=== PATIENT | male | born 1970 | race Caucasian/White ===

== ENCOUNTER 2022-06-04 05:53 | Emergency (ER) | payer MEDICAID, SELFPAY ==
[2022-06-04] MEDS ORDERED: hydrALAZINE 20MG/ML 1ML VIAL (J0360 PER 20MG) IV STA (06:22)
[2022-06-04] MEDS ORDERED: hydrALAZINE 20MG/ML 1ML VIAL (J0360 PER 20MG) As Ordered ONE (06:22)
[2022-06-04 06:25] VITALS: BP 191/126
[2022-06-04] MEDS ORDERED: niCARdipine IV 40 MG in IV 1 EA IV SCH (06:25)
[2022-06-04 06:30] VITALS: BP 184/109
[2022-06-04 06:32] LABS: BASO % 0.4 % (0.0-1.0); EOS # 0.1 10^3/uL (0.0-0.5); EOS % 0.9 % (0.0-3.0); HEMATOCRIT 42.6 % (42.0-52.0); HEMOGLOBIN 15.8 g/dl (13.5-17.5); LYMPH # 1.1 10^3/uL (1.5-5.0); LYMPH % 11.5 % (24.0-44.0); MEAN CORPUSCULAR HEMOGLOBIN 32.5 pg (27.0-33.0); MEAN CORPUSCULAR VOLUME 87.7 fl (80.0-96.0); MONO # 0.7 10^3/uL (0.0-0.8); MONO % 7.9 % (2.0-8.0); NEUTROPHILS # 7.3 10^3/uL (1.5-8.5); NEUTROPHILS % 78.8 % (36.0-66.0); PLATELET COUNT, AUTOMATED 240 10^3/uL (150-450); RED BLOOD COUNT 4.86 10^6/uL (4.30-6.10); WHITE BLOOD COUNT 9.2 10^3/uL (4.0-10.0)
[2022-06-04 06:39] LABS: MEAN CORPUSCULAR HGB CONC 37.1 g/dl (32.0-36.5)
[2022-06-04 07:01] VITALS: BP 147/73
[2022-06-04 07:07] LABS: CALCIUM LEVEL 9.8 MG/DL (8.5-10.1); CREATININE FOR GFR 1.36 MG/DL (0.70-1.30); GLOMERULAR FILTRATION RATE 59.3 (>60); MB/CK RELATIVE INDEX 1.99 (< OR =4); POTASSIUM SERUM 2.6 MEQ/L (3.5-5.1)
== END 2022-06-04 07:09 | disposition short-term general hospital (02) ==
LOC: M ED 05:53 → EDBD 05:53 → M ED 07:09
DX: I61.8 Other nontraumatic intracerebral hemorrhage (principal); R91.8 Other nonspecific abnormal finding of lung field; J34.1 Cyst and mucocele of nose and nasal sinus
CPT/HCPCS: 70450; 71045; 80048; 82550; 82553; 85025; 85730; 86850; 93005; 93041; 94760; 96374; 99291; 99292; J0360

== ENCOUNTER 2022-06-27 10:57 | Inpatient (IN) | payer MEDICAID ==
[~2022-06-27] VITALS: Ht 185.4 cm; Wt 106.9 kg
[2022-06-27 15:35] VITALS: BP 149/88
[2022-06-27] MEDS ORDERED: MAGIC MOUTHWASH SUSPENSION BTL SS PRN (15:35)
[2022-06-27] MEDS ORDERED: VITAMIN A & D OINTMENT 42.5GM TOP PRN (16:30)
[2022-06-27] MEDS ORDERED: SENN-80 PO (16:39)
[2022-06-27] MEDS ORDERED: HYDR-3910 PO (16:39)
[2022-06-27] MEDS ORDERED: PERI12LIQ SSP (16:39)
[2022-06-27] MEDS ORDERED: FAMO20TA PO (16:39)
[2022-06-27] MEDS ORDERED: THIA100T7 PO (16:39)
[2022-06-27] MEDS ORDERED: LISI10TA22 PO (16:39)
[2022-06-27] MEDS ORDERED: VITA100093 PO (16:39)
[2022-06-27] MEDS ORDERED: HEPA500057 SC (16:39)
[2022-06-27] MEDS ORDERED: DOCU100C16 PO (16:39)
[2022-06-27] MEDS ORDERED: AMLO1TAB25 PO (16:39)
[2022-06-27] MEDS ORDERED: ACET1TAB55 PO (16:39)
[2022-06-27] MEDS ORDERED: MICO2CRE42 TOP (16:39)
[2022-06-27] MEDS ORDERED: HOME MED LIST COMPLETE! XX SCH (16:40)
[2022-06-27 20:00] VITALS: BP 135/78
[2022-06-27] MEDS: **hydrALAZINE HCL** 25 MG TAB PO SCH (20:15)
[2022-06-27] MEDS: SENNA 8.6 MG TAB (SENOKOT) PO SCH (20:15)
[2022-06-27] MEDS: FAMOTIDINE 20 MG TAB PO SCH (20:15)
[2022-06-27] MEDS: NYSTATIN 100,000 UNITS/GM TOPICAL PWD 15 GM TOP SCH (20:16)
[2022-06-28 06:00] VITALS: BP 142/90
[2022-06-28 07:19] LABS: BASO % 0.6 % (0.0-1.0); EOS # 0.1 10^3/uL (0.0-0.5); EOS % 2.7 % (0.0-3.0); HEMATOCRIT 38.3 % (42.0-52.0); HEMOGLOBIN 13.2 g/dl (13.5-17.5); LYMPH # 1.2 10^3/uL (1.5-5.0); LYMPH % 25.1 % (24.0-44.0); MEAN CORPUSCULAR HGB CONC 34.5 g/dl (32.0-36.5); MONO # 0.4 10^3/uL (0.0-0.8); MONO % 8.4 % (2.0-8.0); NEUTROPHILS % 61.6 % (36.0-66.0); PLATELET COUNT, AUTOMATED 266 10^3/uL (150-450); RED BLOOD COUNT 4.12 10^6/uL (4.30-6.10); WHITE BLOOD COUNT 4.9 10^3/uL (4.0-10.0)
[2022-06-28 07:59] LABS: ALBUMIN 3.4 GM/DL (3.2-5.2); ALT/SGPT 108 U/L (12-78); BILIRUBIN,TOTAL 0.8 MG/DL (0.2-1.0); BLOOD UREA NITROGEN 11 MG/DL (7-18); CALCIUM LEVEL 9.3 MG/DL (8.5-10.1); CARBON DIOXIDE LEVEL 30 MEQ/L (21-32); CHLORIDE LEVEL 102 MEQ/L (98-107); CHOLESTEROL LEVEL 109 MG/DL (<200); CHOLESTEROL RISK RATIO 2.794 (<5); CREATININE FOR GFR 0.71 MG/DL (0.70-1.30); GLOMERULAR FILTRATION RATE > 60.0 (>56); GLUCOSE, FASTING 76 MG/DL (70-100); HDL CHOLESTEROL 39 MG/DL (>40); LDL CHOLESTEROL 41 MG/DL (<100); NON-HDL-C 70 MG/DL; POTASSIUM SERUM 4.3 MEQ/L (3.5-5.1); SODIUM LEVEL 136 MEQ/L (136-145); TOTAL PROTEIN 6.4 GM/DL (6.4-8.2); TRIGLYCERIDES LEVEL 144 MG/DL (<150)
[2022-06-28] MEDS: SENNA 8.6 MG TAB (SENOKOT) PO SCH ×2 (08:17→20:22)
[2022-06-28] MEDS: VITAMIN D 1,000 INTERNATIONAL UNITS TABLET PO SCH (08:17)
[2022-06-28] MEDS: THIAMINE 100 MG TAB PO SCH (08:18)
[2022-06-28] MEDS: **hydrALAZINE HCL** 25 MG TAB PO SCH ×2 (08:18→20:23)
[2022-06-28] MEDS: FAMOTIDINE 20 MG TAB PO SCH ×2 (08:21→20:22)
[2022-06-28] MEDS: NYSTATIN 100,000 UNITS/GM TOPICAL PWD 15 GM TOP SCH ×2 (08:23→20:23)
[2022-06-28 11:17] LABS: FERRITIN 366 NG/ML (26-388); IRON (FE) 231 UG/DL (65-175); PERCENT SATURATION 93.5 % (19.7-50.0); TOTAL IRON BINDING CAPACITY 247 UG/DL (250-450)
[2022-06-28 11:44] LABS: VITAMIN B12 LEVEL 796 PG/ML
[2022-06-28 11:54] LABS: HEPATITIS B SURFACE ANTIGEN NEGATIVE (NEGATIVE)
[2022-06-28 12:22] LABS: HEPATITIS B CORE ANTIBODY IGM NEGATIVE (NEGATIVE); HEPATITIS C VIRUS ABY INDEX 0.1 INDEX (<0.8)
[2022-06-28] MEDS ORDERED: VARIBAR PUDDING 40% w/v 230ML TUBE As Ordered ONE (13:34)
[2022-06-28] MEDS ORDERED: VARIBAR NECTAR 40% w/v 240ML SUSP BTL As Ordered ONE (13:37)
[2022-06-28] MEDS ORDERED: E-Z-PAQUE 96% w/w SUSP 176GM BTL As Ordered ONE (13:39)
[2022-06-28] MEDS ORDERED: BARIUM SULFATE 700 MG TABLET (E-Z-DISK) As Ordered ONE (13:39)
[2022-06-28 14:00] VITALS: BP 140/84
[2022-06-28 20:00] VITALS: BP 125/82
[2022-06-29 06:00] VITALS: BP 148/80
[2022-06-29] MEDS: THIAMINE 100 MG TAB PO SCH (09:43)
[2022-06-29] MEDS: VITAMIN D 1,000 INTERNATIONAL UNITS TABLET PO SCH (09:43)
[2022-06-29] MEDS: SENNA 8.6 MG TAB (SENOKOT) PO SCH ×2 (09:43→20:53)
[2022-06-29] MEDS: FAMOTIDINE 20 MG TAB PO SCH ×2 (09:43→20:54)
[2022-06-29] MEDS: NYSTATIN 100,000 UNITS/GM TOPICAL PWD 15 GM TOP SCH ×2 (09:44→20:54)
[2022-06-29] MEDS: **hydrALAZINE HCL** 25 MG TAB PO SCH ×2 (09:44→20:54)
[2022-06-29 14:00] VITALS: BP 134/85
[2022-06-29 20:00] VITALS: BP 123/79
[2022-06-30 06:00] VITALS: BP 120/81
[2022-06-30 06:31] LABS: APPEARANCE, URINE MANUAL CLEAR (CLEAR); COLOR, URINE MANUAL YELLOW (YELLOW); PH,URINE MAN 7.5 UNITS (5.0 - 7.0)
[2022-06-30 06:33] LABS: BILIRUBIN, URINE MANUAL NEGATIVE (NEGATIVE); BLOOD URINE MANUAL NEGATIVE (NEGATIVE); GLUCOSE, URINE (UA) MANUAL NEGATIVE (NEGATIVE); KETONE, URINE MANUAL NEGATIVE (NEGATIVE); LEUKOCYTE ESTERASE, URINE MAN NEGATIVE (NEGATIVE); NITRITE, URINE MANUAL NEGATIVE (NEGATIVE); PROTEIN, URINE MANUAL NEGATIVE (NEGATIVE); UROBILINOGEN, URINE MANUAL NORMAL (NORMAL)
[2022-06-30] MEDS: SENNA 8.6 MG TAB (SENOKOT) PO SCH ×2 (09:22→20:55)
[2022-06-30] MEDS: **hydrALAZINE HCL** 25 MG TAB PO SCH ×2 (09:22→20:55)
[2022-06-30] MEDS: FAMOTIDINE 20 MG TAB PO SCH ×2 (09:22→20:55)
[2022-06-30] MEDS: NYSTATIN 100,000 UNITS/GM TOPICAL PWD 15 GM TOP SCH ×2 (09:23→20:55)
[2022-06-30] MEDS: THIAMINE 100 MG TAB PO SCH (09:23)
[2022-06-30] MEDS: VITAMIN D 1,000 INTERNATIONAL UNITS TABLET PO SCH (09:23)
[2022-06-30 14:00] VITALS: BP 122/74
[2022-06-30 20:00] VITALS: BP 131/74
[2022-07-01 06:00] VITALS: BP 122/80
[2022-07-01] MEDS: FAMOTIDINE 20 MG TAB PO SCH ×2 (09:58→20:05)
[2022-07-01] MEDS: THIAMINE 100 MG TAB PO SCH (09:58)
[2022-07-01] MEDS: VITAMIN D 1,000 INTERNATIONAL UNITS TABLET PO SCH (09:58)
[2022-07-01] MEDS: SENNA 8.6 MG TAB (SENOKOT) PO SCH ×2 (09:58→20:05)
[2022-07-01] MEDS: NYSTATIN 100,000 UNITS/GM TOPICAL PWD 15 GM TOP SCH ×2 (09:58→20:05)
[2022-07-01] MEDS: **hydrALAZINE HCL** 25 MG TAB PO SCH ×2 (10:01→20:05)
[2022-07-01 14:00] VITALS: BP 133/83
[2022-07-01 19:41] VITALS: BP 134/89
[2022-07-02 05:28] VITALS: BP 136/86
[2022-07-02] MEDS: FAMOTIDINE 20 MG TAB PO SCH ×2 (08:39→20:42)
[2022-07-02] MEDS: SENNA 8.6 MG TAB (SENOKOT) PO SCH ×2 (08:40→20:43)
[2022-07-02] MEDS: THIAMINE 100 MG TAB PO SCH (08:40)
[2022-07-02] MEDS: VITAMIN D 1,000 INTERNATIONAL UNITS TABLET PO SCH (08:40)
[2022-07-02] MEDS: **hydrALAZINE HCL** 25 MG TAB PO SCH ×2 (08:41→20:43)
[2022-07-02] MEDS: NYSTATIN 100,000 UNITS/GM TOPICAL PWD 15 GM TOP SCH ×2 (08:43→20:43)
[2022-07-02 14:00] VITALS: BP 144/90
[2022-07-02 19:36] VITALS: BP_SYST 148; BP_SYST 159; BP_DIAS 84; BP_DIAS 90
[2022-07-03 06:00] VITALS: BP 132/84
[2022-07-03 07:30] LABS: ALBUMIN 3.4 GM/DL (3.2-5.2); ALT/SGPT 72 U/L (12-78); BLOOD UREA NITROGEN 10 MG/DL (7-18); CALCIUM LEVEL 9.2 MG/DL (8.5-10.1); CARBON DIOXIDE LEVEL 32 MEQ/L (21-32); CHLORIDE LEVEL 102 MEQ/L (98-107); CREATININE FOR GFR 0.77 MG/DL (0.70-1.30); GLOMERULAR FILTRATION RATE > 60.0 (>56); GLUCOSE, FASTING 102 MG/DL (70-100); POTASSIUM SERUM 3.9 MEQ/L (3.5-5.1); SODIUM LEVEL 138 MEQ/L (136-145); TOTAL PROTEIN 6.3 GM/DL (6.4-8.2)
[2022-07-03] MEDS: THIAMINE 100 MG TAB PO SCH (09:08)
[2022-07-03] MEDS: SENNA 8.6 MG TAB (SENOKOT) PO SCH ×2 (09:08→19:42)
[2022-07-03] MEDS: FAMOTIDINE 20 MG TAB PO SCH ×2 (09:08→20:34)
[2022-07-03] MEDS: VITAMIN D 1,000 INTERNATIONAL UNITS TABLET PO SCH (09:08)
[2022-07-03] MEDS: **hydrALAZINE HCL** 25 MG TAB PO SCH ×2 (09:09→20:34)
[2022-07-03] MEDS: NYSTATIN 100,000 UNITS/GM TOPICAL PWD 15 GM TOP SCH ×2 (09:12→20:34)
[2022-07-03 14:00] VITALS: BP 140/85
[2022-07-03 20:00] VITALS: BP 154/87
[2022-07-04 06:00] VITALS: BP 142/88
[2022-07-04] MEDS: FAMOTIDINE 20 MG TAB PO SCH ×2 (08:33→20:53)
[2022-07-04] MEDS: VITAMIN D 1,000 INTERNATIONAL UNITS TABLET PO SCH (08:33)
[2022-07-04] MEDS: ACETAMINOPHEN TAB 650MG DOSE (2X325MG) PO PRN (08:33)
[2022-07-04] MEDS: THIAMINE 100 MG TAB PO SCH (08:34)
[2022-07-04] MEDS: **hydrALAZINE HCL** 25 MG TAB PO SCH ×2 (08:34→20:54)
[2022-07-04] MEDS: NYSTATIN 100,000 UNITS/GM TOPICAL PWD 15 GM TOP SCH ×2 (08:34→20:54)
[2022-07-04] MEDS: SENNA 8.6 MG TAB (SENOKOT) PO SCH (08:35)
[2022-07-04 14:00] VITALS: BP 132/78
[2022-07-04 19:41] VITALS: BP 137/77
[2022-07-04] MEDS: BACLOFEN 5MG PER 1/2 TABLET PO SCH (20:53)
[2022-07-05 05:39] VITALS: BP 144/83
[2022-07-05] MEDS ORDERED: SENNA 8.6 MG TAB (SENOKOT) PO PRN (06:00)
[2022-07-05] MEDS: THIAMINE 100 MG TAB PO SCH (08:16)
[2022-07-05] MEDS: VITAMIN D 1,000 INTERNATIONAL UNITS TABLET PO SCH (08:16)
[2022-07-05] MEDS: **hydrALAZINE HCL** 25 MG TAB PO SCH ×2 (08:16→20:56)
[2022-07-05] MEDS: FAMOTIDINE 20 MG TAB PO SCH ×2 (08:16→20:56)
[2022-07-05] MEDS: NYSTATIN 100,000 UNITS/GM TOPICAL PWD 15 GM TOP SCH ×2 (08:17→20:57)
[2022-07-05 14:00] VITALS: BP 128/86
[2022-07-05] MEDS: BACLOFEN 5MG PER 1/2 TABLET PO SCH (20:56)
[2022-07-05 23:23] VITALS: BP 130/84
[2022-07-06 05:25] VITALS: BP 148/88
[2022-07-06] MEDS: **hydrALAZINE HCL** 25 MG TAB PO SCH ×2 (09:30→20:26)
[2022-07-06] MEDS: NYSTATIN 100,000 UNITS/GM TOPICAL PWD 15 GM TOP SCH ×2 (09:31→20:26)
[2022-07-06] MEDS: FAMOTIDINE 20 MG TAB PO SCH ×2 (09:31→20:26)
[2022-07-06] MEDS: THIAMINE 100 MG TAB PO SCH (09:31)
[2022-07-06] MEDS: VITAMIN D 1,000 INTERNATIONAL UNITS TABLET PO SCH (09:31)
[2022-07-06 10:37] LABS: ALBUMIN 3.6 GM/DL (3.2-5.2); ALT/SGPT 59 U/L (12-78); BILIRUBIN,TOTAL 1.1 MG/DL (0.2-1.0); BLOOD UREA NITROGEN 10 MG/DL (7-18); CALCIUM LEVEL 9.2 MG/DL (8.5-10.1); CARBON DIOXIDE LEVEL 29 MEQ/L (21-32); CHLORIDE LEVEL 103 MEQ/L (98-107); CREATININE FOR GFR 0.72 MG/DL (0.70-1.30); GLOMERULAR FILTRATION RATE > 60.0 (>56); GLUCOSE, FASTING 108 MG/DL (70-100); POTASSIUM SERUM 3.4 MEQ/L (3.5-5.1); SODIUM LEVEL 138 MEQ/L (136-145); TOTAL PROTEIN 6.9 GM/DL (6.4-8.2)
[2022-07-06 16:00] VITALS: BP 160/60
[2022-07-06 20:00] VITALS: BP 142/88
[2022-07-06] MEDS: BACLOFEN 5MG PER 1/2 TABLET PO SCH (20:25)
[2022-07-07 06:00] VITALS: BP 142/88
[2022-07-07] MEDS: FAMOTIDINE 20 MG TAB PO SCH ×2 (09:44→20:29)
[2022-07-07] MEDS: **hydrALAZINE HCL** 25 MG TAB PO SCH ×2 (09:44→20:30)
[2022-07-07] MEDS: THIAMINE 100 MG TAB PO SCH (09:44)
[2022-07-07] MEDS: VITAMIN D 1,000 INTERNATIONAL UNITS TABLET PO SCH (09:44)
[2022-07-07] MEDS: NYSTATIN 100,000 UNITS/GM TOPICAL PWD 15 GM TOP SCH ×2 (09:45→20:30)
[2022-07-07 14:00] VITALS: BP 139/89
[2022-07-07 20:00] VITALS: BP 148/88
[2022-07-07] MEDS: BACLOFEN 5MG PER 1/2 TABLET PO SCH (20:29)
[2022-07-08 06:00] VITALS: BP 140/90
[2022-07-08] MEDS: FAMOTIDINE 20 MG TAB PO SCH ×2 (09:36→20:53)
[2022-07-08] MEDS: THIAMINE 100 MG TAB PO SCH (09:36)
[2022-07-08] MEDS: VITAMIN D 1,000 INTERNATIONAL UNITS TABLET PO SCH (09:36)
[2022-07-08] MEDS: **hydrALAZINE HCL** 25 MG TAB PO SCH ×2 (09:36→20:54)
[2022-07-08] MEDS: NYSTATIN 100,000 UNITS/GM TOPICAL PWD 15 GM TOP SCH ×2 (09:37→20:56)
[2022-07-08 14:00] VITALS: BP 153/93
[2022-07-08 20:32] VITALS: BP 139/92
[2022-07-08] MEDS: BACLOFEN 5MG PER 1/2 TABLET PO SCH (20:53)
[2022-07-08 21:07] VITALS: BP 140/76
[2022-07-09 06:01] VITALS: BP 138/88
[2022-07-09] MEDS: VITAMIN D 1,000 INTERNATIONAL UNITS TABLET PO SCH (07:50)
[2022-07-09] MEDS: FAMOTIDINE 20 MG TAB PO SCH ×2 (07:50→20:15)
[2022-07-09] MEDS: THIAMINE 100 MG TAB PO SCH (07:50)
[2022-07-09] MEDS: **hydrALAZINE HCL** 25 MG TAB PO SCH ×2 (07:50→20:15)
[2022-07-09] MEDS: NYSTATIN 100,000 UNITS/GM TOPICAL PWD 15 GM TOP SCH ×2 (07:51→20:15)
[2022-07-09 14:00] VITALS: BP 140/85
[2022-07-09 20:15] VITALS: BP 155/90
[2022-07-09] MEDS: BACLOFEN 5MG PER 1/2 TABLET PO SCH (20:15)
[2022-07-10 05:50] VITALS: BP 155/92
[2022-07-10] MEDS ORDERED: ALBUTEROL SULFATE 2.5 MG/0.5 ML INH NEB SOLN NEB PRN (08:00)
[2022-07-10] MEDS ORDERED: CHLORASEPTIC SPRAY MT PRN (08:05)
[2022-07-10] MEDS ORDERED: SODIUM CHLORIDE NASAL 0.65% SPRAY BTL (OCEAN) PRN (08:05)
[2022-07-10] MEDS: FAMOTIDINE 20 MG TAB PO SCH ×2 (08:26→20:38)
[2022-07-10] MEDS: THIAMINE 100 MG TAB PO SCH (08:26)
[2022-07-10] MEDS: VITAMIN D 1,000 INTERNATIONAL UNITS TABLET PO SCH (08:26)
[2022-07-10] MEDS: **hydrALAZINE HCL** 25 MG TAB PO SCH ×2 (08:27→20:38)
[2022-07-10] MEDS: NYSTATIN 100,000 UNITS/GM TOPICAL PWD 15 GM TOP SCH ×2 (08:27→20:39)
[2022-07-10] MEDS: ACETAMINOPHEN TAB 650MG DOSE (2X325MG) PO PRN ×2 (09:07→20:38)
[2022-07-10 14:00] VITALS: BP 133/76
[2022-07-10 19:55] VITALS: BP 124/82
[2022-07-10] MEDS: BACLOFEN 5MG PER 1/2 TABLET PO SCH (20:39)
[2022-07-10] MEDS ORDERED: ACETAMINOPHEN 325 MG TAB PO ONE (22:10)
[2022-07-10] MEDS ORDERED: FLUTICASONE PROP 0.05% NASAL SPRAY 16 GM (FLONASE) NARES PRN (22:15)
[2022-07-11 05:13] VITALS: BP 139/89
[2022-07-11] MEDS ORDERED: ALBUTEROL 90 MCG/ACT 8GM HFA INHALER INH PRN (07:00)
[2022-07-11] MEDS ORDERED: EPINEPHrine INJ 1 MG/ML 1ML AMP IM PRN (07:01)
[2022-07-11] MEDS ORDERED: diphenhydrAMINE 50MG/ML VIAL (J1200) IV PRN (07:01)
[2022-07-11] MEDS ORDERED: methylPREDNISolone 125MG 2ML VIAL IV PRN (07:01)
[2022-07-11] MEDS ORDERED: ALBUTEROL SULFATE 2.5 MG/0.5 ML INH NEB SOLN INH PRN (07:01)
[2022-07-11 08:00] LABS: BASO % 0.8 % (0.0-1.0); EOS # 0.1 10^3/uL (0.0-0.5); EOS % 1.5 % (0.0-3.0); HEMATOCRIT 38.2 % (42.0-52.0); HEMOGLOBIN 13.2 g/dl (13.5-17.5); LYMPH # 0.9 10^3/uL (1.5-5.0); LYMPH % 22.3 % (24.0-44.0); MEAN CORPUSCULAR HEMOGLOBIN 31.7 pg (27.0-33.0); MEAN CORPUSCULAR HGB CONC 34.6 g/dl (32.0-36.5); MEAN CORPUSCULAR VOLUME 91.8 fl (80.0-96.0); MONO # 0.8 10^3/uL (0.0-0.8); MONO % 19.4 % (2.0-8.0); NEUTROPHILS # 2.2 10^3/uL (1.5-8.5); PLATELET COUNT, AUTOMATED 142 10^3/uL (150-450); RED BLOOD COUNT 4.16 10^6/uL (4.30-6.10); WHITE BLOOD COUNT 3.9 10^3/uL (4.0-10.0)
[2022-07-11 08:21] LABS: BLOOD UREA NITROGEN 7 MG/DL (7-18); CALCIUM LEVEL 9.2 MG/DL (8.5-10.1); CARBON DIOXIDE LEVEL 31 MEQ/L (21-32); CHLORIDE LEVEL 103 MEQ/L (98-107); CREATININE FOR GFR 0.71 MG/DL (0.70-1.30); GLOMERULAR FILTRATION RATE > 60.0 (>56); GLUCOSE, FASTING 83 MG/DL (70-100); POTASSIUM SERUM 3.5 MEQ/L (3.5-5.1); SODIUM LEVEL 138 MEQ/L (136-145)
[2022-07-11] MEDS: THIAMINE 100 MG TAB PO SCH (09:08)
[2022-07-11] MEDS: FAMOTIDINE 20 MG TAB PO SCH ×2 (09:08→20:49)
[2022-07-11] MEDS: **hydrALAZINE HCL** 25 MG TAB PO SCH ×2 (09:09→20:49)
[2022-07-11] MEDS: NYSTATIN 100,000 UNITS/GM TOPICAL PWD 15 GM TOP SCH ×2 (09:09→20:49)
[2022-07-11] MEDS: VITAMIN D 1,000 INTERNATIONAL UNITS TABLET PO SCH (09:09)
[2022-07-11] MEDS: ACETAMINOPHEN TAB 650MG DOSE (2X325MG) PO PRN (09:41)
[2022-07-11] MEDS ORDERED: BEBTELOVIMAB 175MG 2ML VIAL (EUA) IV ONE (10:00)
[2022-07-11] MEDS ORDERED: NS 1,000 ML IV SCH (10:00)
[2022-07-11 12:18] VITALS: BP 131/80
[2022-07-11 14:00] VITALS: BP 116/72
[2022-07-11] MEDS: ALBUTEROL 90 MCG/ACT 8GM HFA INHALER INH SCH ×2 (16:00→20:00)
[2022-07-11 20:00] VITALS: BP 129/76
[2022-07-11] MEDS: BACLOFEN 5MG PER 1/2 TABLET PO SCH (20:48)
[2022-07-12] MEDS: ALBUTEROL 90 MCG/ACT 8GM HFA INHALER INH SCH ×8 (04:00→23:44)
[2022-07-12 06:00] VITALS: BP 139/83
[2022-07-12 08:24] LABS: BASO % 0.2 % (0.0-1.0); EOS # 0.1 10^3/uL (0.0-0.5); EOS % 2.9 % (0.0-3.0); HEMATOCRIT 36.9 % (42.0-52.0); HEMOGLOBIN 12.7 g/dl (13.5-17.5); LYMPH % 23.6 % (24.0-44.0); MEAN CORPUSCULAR HEMOGLOBIN 31.8 pg (27.0-33.0); MEAN CORPUSCULAR HGB CONC 34.4 g/dl (32.0-36.5); MEAN CORPUSCULAR VOLUME 92.3 fl (80.0-96.0); MONO # 0.3 10^3/uL (0.0-0.8); MONO % 7.5 % (2.0-8.0); NEUTROPHILS # 2.7 10^3/uL (1.5-8.5); NEUTROPHILS % 65.6 % (36.0-66.0); PLATELET COUNT, AUTOMATED 160 10^3/uL (150-450); WHITE BLOOD COUNT 4.2 10^3/uL (4.0-10.0)
[2022-07-12] MEDS: FAMOTIDINE 20 MG TAB PO SCH ×2 (08:36→21:10)
[2022-07-12] MEDS: VITAMIN D 1,000 INTERNATIONAL UNITS TABLET PO SCH (08:36)
[2022-07-12] MEDS: THIAMINE 100 MG TAB PO SCH (08:37)
[2022-07-12] MEDS: NYSTATIN 100,000 UNITS/GM TOPICAL PWD 15 GM TOP SCH ×2 (08:37→21:11)
[2022-07-12] MEDS: **hydrALAZINE HCL** 25 MG TAB PO SCH ×2 (08:37→21:11)
[2022-07-12 09:03] LABS: ALBUMIN 3.4 GM/DL (3.2-5.2); ALT/SGPT 55 U/L (12-78); BILIRUBIN,TOTAL 0.6 MG/DL (0.2-1.0); BLOOD UREA NITROGEN 8 MG/DL (7-18); CARBON DIOXIDE LEVEL 31 MEQ/L (21-32); CHLORIDE LEVEL 102 MEQ/L (98-107); GLOMERULAR FILTRATION RATE > 60.0 (>56); GLUCOSE, FASTING 116 MG/DL (70-100); POTASSIUM SERUM 3.5 MEQ/L (3.5-5.1); SODIUM LEVEL 137 MEQ/L (136-145); TOTAL PROTEIN 6.6 GM/DL (6.4-8.2)
[2022-07-12 14:00] VITALS: BP 118/83
[2022-07-12 20:00] VITALS: BP 132/91
[2022-07-12] MEDS: BACLOFEN 5MG PER 1/2 TABLET PO SCH (21:10)
[2022-07-13] MEDS: ALBUTEROL 90 MCG/ACT 8GM HFA INHALER INH SCH ×4 (04:00→15:49)
[2022-07-13 06:00] VITALS: BP 138/89
[2022-07-13 07:30] LABS: HEMOGLOBIN A1c 4.8 %
[2022-07-13] MEDS: FAMOTIDINE 20 MG TAB PO SCH ×2 (09:56→20:58)
[2022-07-13] MEDS: THIAMINE 100 MG TAB PO SCH (09:56)
[2022-07-13] MEDS: **hydrALAZINE HCL** 25 MG TAB PO SCH ×2 (09:56→20:58)
[2022-07-13] MEDS: VITAMIN D 1,000 INTERNATIONAL UNITS TABLET PO SCH (09:56)
[2022-07-13] MEDS: NYSTATIN 100,000 UNITS/GM TOPICAL PWD 15 GM TOP SCH (09:57)
[2022-07-13 14:00] VITALS: BP 128/70
[2022-07-13 20:00] VITALS: BP 131/86
[2022-07-13] MEDS: BACLOFEN 5MG PER 1/2 TABLET PO SCH (20:58)
[2022-07-14] MEDS: ALBUTEROL 90 MCG/ACT 8GM HFA INHALER INH SCH ×7 (00:12→23:28)
[2022-07-14 05:41] VITALS: BP 136/90
[2022-07-14] MEDS: THIAMINE 100 MG TAB PO SCH (07:50)
[2022-07-14] MEDS: FAMOTIDINE 20 MG TAB PO SCH ×2 (07:50→20:44)
[2022-07-14] MEDS: **hydrALAZINE HCL** 25 MG TAB PO SCH ×2 (07:51→20:43)
[2022-07-14] MEDS: VITAMIN D 1,000 INTERNATIONAL UNITS TABLET PO SCH (07:51)
[2022-07-14 14:00] VITALS: BP 147/92
[2022-07-14 19:42] VITALS: BP 130/78
[2022-07-14] MEDS: BACLOFEN 5MG PER 1/2 TABLET PO SCH (20:44)
[2022-07-15] MEDS: ALBUTEROL 90 MCG/ACT 8GM HFA INHALER INH SCH ×5 (03:30→20:00)
[2022-07-15 05:38] VITALS: BP 144/86
[2022-07-15] MEDS: THIAMINE 100 MG TAB PO SCH (07:55)
[2022-07-15] MEDS: FAMOTIDINE 20 MG TAB PO SCH ×2 (07:55→20:15)
[2022-07-15] MEDS: **hydrALAZINE HCL** 25 MG TAB PO SCH ×2 (07:56→20:15)
[2022-07-15] MEDS: VITAMIN D 1,000 INTERNATIONAL UNITS TABLET PO SCH (07:56)
[2022-07-15 14:00] VITALS: BP_SYST 135; BP_SYST 90; BP_DIAS 45; BP_DIAS 83
[2022-07-15 19:55] VITALS: BP 133/78
[2022-07-15] MEDS: BACLOFEN 5MG PER 1/2 TABLET PO SCH (20:14)
[2022-07-16] MEDS: ALBUTEROL 90 MCG/ACT 8GM HFA INHALER INH SCH ×6 (04:00→20:03)
[2022-07-16 05:35] VITALS: BP 140/92
[2022-07-16] MEDS: FAMOTIDINE 20 MG TAB PO SCH ×2 (08:37→20:29)
[2022-07-16] MEDS: **hydrALAZINE HCL** 25 MG TAB PO SCH ×2 (08:38→20:30)
[2022-07-16] MEDS: THIAMINE 100 MG TAB PO SCH (08:38)
[2022-07-16] MEDS: VITAMIN D 1,000 INTERNATIONAL UNITS TABLET PO SCH (08:38)
[2022-07-16 14:00] VITALS: BP 119/73
[2022-07-16 20:00] VITALS: BP 120/82
[2022-07-16] MEDS: BACLOFEN 5MG PER 1/2 TABLET PO SCH (20:29)
[2022-07-17] MEDS: ALBUTEROL 90 MCG/ACT 8GM HFA INHALER INH SCH ×4 (04:00→11:15)
[2022-07-17 07:27] VITALS: BP 136/86
[2022-07-17] MEDS: VITAMIN D 1,000 INTERNATIONAL UNITS TABLET PO SCH (09:25)
[2022-07-17] MEDS: THIAMINE 100 MG TAB PO SCH (09:25)
[2022-07-17] MEDS: FAMOTIDINE 20 MG TAB PO SCH ×2 (09:26→20:51)
[2022-07-17] MEDS: **hydrALAZINE HCL** 25 MG TAB PO SCH ×2 (09:26→20:52)
[2022-07-17 14:00] VITALS: BP 120/89
[2022-07-17 20:00] VITALS: BP 148/93
[2022-07-17] MEDS: BACLOFEN 5MG PER 1/2 TABLET PO SCH (20:51)
[2022-07-18 06:00] VITALS: BP 155/96
[2022-07-18] MEDS: THIAMINE 100 MG TAB PO SCH (08:18)
[2022-07-18] MEDS: VITAMIN D 1,000 INTERNATIONAL UNITS TABLET PO SCH (08:18)
[2022-07-18] MEDS: FAMOTIDINE 20 MG TAB PO SCH ×2 (08:18→21:48)
[2022-07-18] MEDS: **hydrALAZINE HCL** 25 MG TAB PO SCH ×2 (08:18→21:51)
[2022-07-18] MEDS: ACETAMINOPHEN TAB 650MG DOSE (2X325MG) PO PRN (11:27)
[2022-07-18 14:00] VITALS: BP 127/73
[2022-07-18 20:00] VITALS: BP 133/86
[2022-07-18] MEDS: BACLOFEN 5MG PER 1/2 TABLET PO SCH (21:51)
[2022-07-19 05:34] VITALS: BP 154/91
[2022-07-19] MEDS: FAMOTIDINE 20 MG TAB PO SCH ×2 (09:00→20:05)
[2022-07-19] MEDS: ACETAMINOPHEN TAB 650MG DOSE (2X325MG) PO PRN (09:00)
[2022-07-19] MEDS: THIAMINE 100 MG TAB PO SCH (09:00)
[2022-07-19] MEDS: VITAMIN D 1,000 INTERNATIONAL UNITS TABLET PO SCH (09:00)
[2022-07-19] MEDS: **hydrALAZINE HCL** 25 MG TAB PO SCH ×2 (09:01→20:05)
[2022-07-19 14:30] VITALS: BP 118/71
[2022-07-19] MEDS: BACLOFEN 5MG PER 1/2 TABLET PO SCH (20:04)
[2022-07-19 20:10] VITALS: BP 128/84
[2022-07-20 06:00] VITALS: BP 136/90
[2022-07-20] MEDS ORDERED: AMLO1TAB25 PO (07:41)
[2022-07-20] MEDS ORDERED: LISI10TA22 PO (07:41)
[2022-07-20] MEDS ORDERED: BACL10TA2 PO (07:41)
[2022-07-20] MEDS ORDERED: HYDR25TA PO (07:41)
[2022-07-20] MEDS ORDERED: THIA100TA PO (07:41)
[2022-07-20 09:55] VITALS: BP 136/90
[2022-07-20] MEDS: FAMOTIDINE 20 MG TAB PO SCH (09:55)
[2022-07-20] MEDS: THIAMINE 100 MG TAB PO SCH (09:55)
[2022-07-20] MEDS: VITAMIN D 1,000 INTERNATIONAL UNITS TABLET PO SCH (09:55)
[2022-07-20] MEDS: **hydrALAZINE HCL** 25 MG TAB PO SCH (09:55)
== END 2022-07-20 16:15 | disposition home health service (06) | DRG 58 ==
LOC: M PM&R 15:24
PROVIDERS: ADMIT Physical Medicine & Rehabilitation; ATTEND Physical Medicine & Rehabilitation
DX: I69.251 Hemiplegia and hemiparesis following other nontraumatic intracranial hemorrhage affecting right dominant side (principal); I69.220 Aphasia following other nontraumatic intracranial hemorrhage; I69.291 Dysphagia following other nontraumatic intracranial hemorrhage; R13.10 Dysphagia, unspecified; I21.4 Non-ST elevation (NSTEMI) myocardial infarction; I10 Essential (primary) hypertension; I25.10 Atherosclerotic heart disease of native coronary artery without angina pectoris; E87.0 Hyperosmolality and hypernatremia; R21 Rash and other nonspecific skin eruption; R32 Unspecified urinary incontinence; Z79.899 Other long term (current) drug therapy; I69.192 Facial weakness following nontraumatic intracerebral hemorrhage; D64.9 Anemia, unspecified; R74.01 Elevation of levels of liver transaminase levels; G47.00 Insomnia, unspecified; N31.9 Neuromuscular dysfunction of bladder, unspecified; K59.2 Neurogenic bowel, not elsewhere classified; R53.1 Weakness; Z74.09 Other reduced mobility; U07.1 COVID-19; R41.89 Other symptoms and signs involving cognitive functions and awareness